=== PATIENT | male | born 1980 | race African-American/Black ===

== ENCOUNTER 2017-04-04 16:04 | Emergency (ER) | payer SELFPAY ==
[~2017-04-04] VITALS: Ht 172.7 cm; Wt 72.7 kg
[2017-04-04 16:06] VITALS: TEMP 98.2
[2017-04-04 19:09] VITALS: BP 112/65; PULSE 92
== END 2017-04-04 19:09 | disposition home or self-care (01) ==
LOC: COL.ER 16:04
DX: S00.81XA Abrasion of other part of head, initial encounter (principal); R51 Headache; F10.129 Alcohol abuse with intoxication, unspecified; F17.210 Nicotine dependence, cigarettes, uncomplicated; W18.39XA Other fall on same level, initial encounter